=== PATIENT | male | born 1970 | race Caucasian/White ===

== ENCOUNTER 2017-04-20 13:22 | Inpatient (IN) | payer BC, OTHER ==
[~2017-04-20] VITALS: Ht 172.7 cm; Wt 67.1 kg
[2017-04-20 15:29] LABS: *AMPHETAMINE, URINE NEGATIVE (NEGATIVE); *BARBITURATE, URINE NEGATIVE (NEGATIVE); *CANNABINOID, URINE POSITIVE (NEGATIVE); *COCCAINE, URINE NEGATIVE (NEGATIVE); *OPIATE, URINE POSITIVE (NEGATIVE); *PHENCYCLIDINE SCREEN,URINE NEGATIVE (NEGATIVE)
[2017-04-20 16:30] VITALS: BP 125/80
--- NOTE | 2017-04-20 16:40 | NUR ---
PRN Toradol Administered prn Toradol 30mg for reported pain of 9/10 by pt.
--- NOTE | 2017-04-20 17:00 | NUR ---
Medication Re-assessment Pt reports pain of 4/10 at this time.. Medication was effective.
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
[2017-04-20 18:30] LABS: BASOPHILS # (AUTO) 0.1 K/uL (0.0-8.0); BASOPHILS % (AUTO) 0.8 % (0.0-2.0); EOSINOPHILS # (AUTO) 0.2 K/uL (0.0-0.7); EOSINOPHILS % (AUTO) 2.4 % (0.0-7.0); HEMATOCRIT 45.1 % (40-50); HEMOGLOBIN 15.1 G/DL (14.0-18.0); LYMPHOCYTES # (AUTO) 2.5 K/UL (0.8-4.8); LYMPHOCYTES % (AUTO) 36.9 % (20.5-51.5); MEAN CORPUSCULAR HEMOGLOBIN 30.5 UUG (27.0-31.0); MEAN CORPUSCULAR HGB CONC 33 g/dL (32.0-37.0); MEAN CORPUSCULAR VOLUME 91.2 FL (82.0-92.0); MONOCYTES # (AUTO) 0.7 K/UL (0.1-1.30); MONOCYTES % (AUTO) 11.1 % (0.0-11.0); NEUTROPHILS # (AUTO) 3.2 K/UL (1.8-8.9); NEUTROPHILS % (AUTO) 48.8 % (38.5-71.5); PLATELET COUNT (AUTO) 236 K/UL (150-450); RED BLOOD CELL COUNT(AUTO) 4.95 MIL/UL (4.7-6.1); WHITE BLOOD COUNT (AUTO) 6.7 K/UL (4.0-11.2)
[2017-04-20 18:40] LABS: ALANINE AMINOTRANSFERASE 100 U/L (16-63); ALKALINE PHOSPHATASE 69 U/L (50-136); AMYLASE 34 U/L (25-115); ASPARTATE AMINOTRANSFERASE 61 U/L (15-37); BILIRUBIN,TOTAL 0.5 mg/dL (0.2-1.0); CARBON DIOXIDE 31 mmol/L (21-32); CHLORIDE 104 mmol/L (98-107); GLUCOSE 83 mg/dL (74-106); MAGNESIUM 1.9 mg/dL (1.8-2.4); POTASSIUM 4.4 mmol/L (3.5-5.1); TOTAL PROTEIN, SERUM 8.2 g/dL (6.4-8.2); UREA NITROGEN, BLOOD 16 mg/dL (7-18)
[2017-04-20 18:47] LABS: ETHANOL < 3 MG/DL (0-0)
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
--- NOTE | 2017-04-20 19:28 | NUR ---
Start of shift note Received report from day shift nurse. Pt is a 47 yo male, A+Ox4, presenting to [facility] for Opiate/Benzo/ETOH/Methamphetamine dependence. Pt has Allergies to bees, si on full code status, and on Regular diet. Pt is on Fall precautions. Pt has HX of Anxiety, depression, and Bilateral leg SX's. Pt is on 5 day Ativan and 5 day Subutex tapers, tolerated well. No s/s of distress noted at this time. Respirations even and unlabored. Will continue to monitor.
[2017-04-20 20:08] VITALS: BP 124/82
--- NOTE | 2017-04-20 21:57 | NUR ---
PRN Robaxin Pt c/o Bilateral leg pain 02/14 and requested for PRN Robaxin. Medication given and tolerated well. Will reassess within 1 HR. Will continue to monitor.
--- NOTE | 2017-04-20 22:50 | NUR ---
PRN Robaxin Reassessment Medication effective. Pain= 4/10. No s/s of ASE/distress noted at this time. Respirations even and unlabored. Will continue to monitor.
[2017-04-21 00:15] VITALS: BP 111/73
[2017-04-21 04:19] VITALS: BP 114/75
--- NOTE | 2017-04-21 07:00 | NUR ---
End of shift note Pt is a 47 yo male, A+Ox4, presenting to [facility] for Opiate/Benzo/ETOH/Methamphetamine dependence. Pt has Allergies to bees, si on full code status, and on Regular diet. Pt is on Fall precautions. Pt has HX of Anxiety, depression, and Bilateral leg SX's. Pt is on 5 day Ativan and 5 day Subutex tapers, tolerated well. Pt was given PRN Robaxin @2157. Pt slept for a total of 7 HRS. Last COWS: 4 and Last CIWA: 3 @0400. No s/s of distress noted at this time. Respirations even and unlabored. Will endorse to day shift nurse.
[2017-04-21 08:00] VITALS: BP 109/68
--- NOTE | 2017-04-21 08:42 | NUR ---
PRN TORADOL IM INJECTION Patient complains of pain 10/10 on bilateral knees and legs. PRN toradol injection given. Will continue to monitor patient.
--- NOTE | 2017-04-21 09:42 | NUR ---
REASSESSMENT PRN TORADOL IM INJECTION Patient reports pain decreased to 8/10, mildly effective at this time.
--- NOTE | 2017-04-21 09:44 | NUR ---
START OF SHIFT Received report from carpenter streetcar nurse. Patient is 47 year old male admitted for medically supervised withdrawal from heroin and alcohol. Patient is full code with NKA. On assessment this AM: CIWA: 5 and COWS: 4. Denies SOB, chest pain. Patients vitals signs: 109/68, HR 83, R 16, Temp 98.5, pain 10/10. Reports mild anxiety, body aches (back and bilateral knees and legs), headache and stuffy nose . Med compliant with AM meds. PRN toradol IM given. PPD skin test performed on LFA to be read on 04/23/17. Instructed patient to drink po fluids. Patient was encouraged to attend group meetings today. Will continue to monitor patient. Addendum: 04/21/17 at 1024 by DORETHA VASQUEZ RN Patient has allergy to bee venom proteins (honey bee) Addendum: 04/21/17 at 1028 by DORETHA VASQUEZ RN Patient is on 5-day ativan and 5-day subutex taper.
--- NOTE | 2017-04-21 11:50 | NUR ---
PRN TYLENOL Patient complains of pain 10/10 on bilateral knees and legs. PRN tylenol given. Will continue to monitor patient.
[2017-04-21 12:00] VITALS: BP 123/64
--- NOTE | 2017-04-21 12:50 | NUR ---
REASSESSMENT PRN TYLENOL Patient reports pain 8/10, mildly effective.
--- NOTE | 2017-04-21 14:55 | NUR ---
PRN TORADOL IM INJECTION Patient complains of pain 10/10 on bilateral knees and legs. PRN toradol injection given. Will continue to monitor patient.
--- NOTE | 2017-04-21 15:55 | NUR ---
REASSESSMENT PRN TORADOL IM INJECTION Patient reports pain decreased to 6/10, effective
[2017-04-21 16:00] VITALS: BP 113/66
--- NOTE | 2017-04-21 18:48 | NUR ---
END OF SHIFT Patient is 47 year old male admitted for medically supervised withdrawal from heroin and alcohol. Patient is full code with allergy to bee venom. Patient on 5-day ativan and 5-day subutex taper. Most recent CIWA: 2 AND COWS: 2. Med compliant this shift. PRN toradol IM X2 and Tylenol given. PPD skin test performed on LFA to be read on 04/23/17. Patient tolerated meals without n/v. Ambulating with steady gait, no falls noted. No BM this shift. cis coordinatordirector of recruiting will continue to monitor patient.
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
[2017-04-21 20:26] VITALS: BP 122/77
[2017-04-22 00:18] VITALS: BP 104/58
[2017-04-22 04:00] VITALS: BP 112/78
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
--- NOTE | 2017-04-22 07:15 | NUR ---
Start of Shift Endorsement received from nightshift nurse. Pt is a 47 y/o male admitted for heroin and alcohol dependence. Pt has been placed on a 5 day Ativan and 5 day Subutex taper. PT is tolerating the taper AEB COWS 4, CIWA 4 at 0400. PT did not receive any PRN medications. PT reports feeling rested and being in 8/10 pain. Pt will be further assessed and pain medication will be administered. VS WNL. Full Code. PT is alert and oriented x4. Pt is in STABLE condition at this time. Remains compliant with medication and diet regimen. All needs have been met, All safety measures in place per hospital policy. Bed in lowest position, side rails up x2, call-light within reach. Will continue to monitor
[2017-04-22 08:00] VITALS: BP 134/86
[2017-04-22 08:17] LABS: HEPATITIS B SURFACE AG Negative (Negative)
[2017-04-22 12:00] VITALS: BP 117/73
[2017-04-22 16:00] VITALS: BP 104/69
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
--- NOTE | 2017-04-22 19:28 | NUR ---
End of Shift Endorsement given to nightshift nurse. Pt is a 47 y/o male admitted for heroin and alcohol dependence. Pt has been placed on a 5 day Ativan and 5 day Subutex taper. PT is tolerating the taper and moderately withdrawing AEB COWS 8, CIWA 7 at 1600. PT did received PRN Toradol for pain of 8/10, medication was effective AEB pt reporting pain of 3/10 upon re-assessment. Pt participated in groups and activities. Educated on diet regimen. Pt will be further assessed and pain medication will be administered. VS WNL. Full Code. PT is alert and oriented x4. Pt is in STABLE condition at this time. Remains compliant with medication and diet regimen. All needs have been met, All safety measures in place per hospital policy. Bed in lowest position, side rails up x2, call-light within reach. Will continue to monitor
[2017-04-22 20:30] VITALS: BP 132/72
--- NOTE | 2017-04-22 22:30 | NUR ---
PRN Medication Administration Patient verbalizing increased heart burn. PRN Maalox administered. Will continue to monitor.
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
--- NOTE | 2017-04-22 23:00 | NUR ---
PRN Medication Reassessment Patient is able to verbalize PRN medication was effective in minimizing heartburn. Will continue to monitor.
[2017-04-23 00:10] VITALS: BP 104/60
[2017-04-23 04:05] VITALS: BP 106/64
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
--- NOTE | 2017-04-23 07:27 | NUR ---
START OF SHIFT NOTE: Received report from night clerk nurse. Patient is a 47 year old male admitted for Opiate ad ETOH Dependence and continues receiving a 5 day Ativan and 5 day Subutex taper. Tolerating well. Pt is alert and oriented X4. Color good, skin warm and dry. Respirations even and unlabored. Safety precautions observed. Will continue to monitor.
[2017-04-23 08:14] VITALS: BP 106/64
--- NOTE | 2017-04-23 08:55 | NUR ---
VSS COWS 7 CIWA 7 c/o anxiety, muscle aches, fine tremors and aching teeth.
--- NOTE | 2017-04-23 12:20 | NUR ---
Extra dose of Subutex 4 mg sl given per Dr. Villegas
[2017-04-23 12:23] VITALS: BP 118/66
--- NOTE | 2017-04-23 13:20 | NUR ---
Pt states feels much improved after Subutex 4mg sl
--- NOTE | 2017-04-23 14:40 | NUR ---
Toradol 30mg IM RG prn given for bilateral leg pain.
--- NOTE | 2017-04-23 15:40 | NUR ---
Pt states pain down to 4/10 from 7/10 after Toradol prn
[2017-04-23 16:52] VITALS: BP 102/63
--- NOTE | 2017-04-23 18:36 | NUR ---
END OF SHIFT NOTE: Report given to office services representative nurse. Patient is a 47 year old male admitted for Opiate ad ETOH Dependence and continues receiving a 5 day Ativan and 5 day Subutex taper. Tolerating well. Pt is alert and oriented X4. Color good, skin warm and dry. Respirations even and unlabored. Vital signs have remained stable throughout shift. Pt received extra dose of Subutex 4 mg sl given @ 1220. Pt also received Toradol 30mg IM @ 1440. Last COWS 5 and CIWA 5 @ 1700. Safety precautions observed. Call light within reach.
[2017-04-23 20:00] VITALS: BP 136/72
--- NOTE | 2017-04-23 20:00 | NUR ---
START OF SHIFT Pt is a 47 y/o male admitted on 04/20/17 for benzos, ETOH, opiate dependence. Pt is here for heroin 3-5 g IV daily, xanax 2-4 mg 2-3 x weekly, alcohol 6-pack and a bottle of vodka daily, cocaine 1 g 2-3 x weekly, meth 1 g weekly. Pt is full code, allergic to bee venom, regular diet, and fall/seizure precautions. Pt reports PMH of anxiety, depression, Hep C, and surgery on bilateral legs. No reported seziure hx. Pt started on a 5 day Subutex and 5 day Ativan taper starting on 04/20/17. Subutex 4 mg x 1 and PRN Toradol given during day shift. Upon assessment pt is complaining of pain 6/10 in legs, mild to moderate anxiety, intermittent nausea. Pt also presents with flushing and inability to sit still. Respirations 16, even and unlabored. Denies vomiting or diarrhea. Denies chest pain or SOB. Medications due. Safety measures in place. Call light within reach. Will continue to monitor.
[2017-04-24] VITALS: BP 93/61
--- NOTE | 2017-04-24 | NUR ---
VITAL SIGNS BP 93/61, P 62, R 16, 02 95%, T 98.4, PA 0/10 COWS/CIWA deferred. Pt is laying in bed with eyes closed, to be reassessed when pt is awake per MD order. Respirations are even and unlabored. Safety measures in place. Call light within reach. Will continue to monitor.
[2017-04-24 04:00] VITALS: BP 107/49
--- NOTE | 2017-04-24 04:00 | NUR ---
VITAL SIGNS BP 107/49, P 59, R 17, 02 96%, T 98.0, PA 0/10 COWS/CIWA deferred. Pt is laying in bed with eyes closed, to be reassessed when pt is awake per MD order. Respirations are even and unlabored. Safety measures in place. Call light within reach. Will continue to monitor.
--- NOTE | 2017-04-24 07:00 | NUR ---
END OF SHIFT Pt is a 47 y/o male admitted on 04/20/17 for benzos, ETOH, opiate dependence. Pt is here for heroin 3-5 g IV daily, xanax 2-4 mg x 2-3 weekly, alcohol 6-pack and a bottle of vodka daily, cocaine 1 g x 2-3 weekly, meth 1 g weekly. Pt is full code, allergic to bee venom, regular diet, and fall/seizure precautions. Pt reports PMH of anxiety, depression, Hep C, and surgery on bilateral legs. No reported seziure hx. Pt started on a 5 day Subutex and 5 day Ativan taper starting on 04/20/17. During shift pt complained of pain 6/10 in legs, mild to moderate anxiety, intermittent nausea. Pt also presented with flushing and inability to sit still. Scheduled medications administered, last COWS 3 and CIWA 3. No PRN medications administered during shift. Pt slept 7 hours. Intake 1210 ml, void x 3, stool x 1. Safety measures in place. Call light within reach. Endorsed to day shift nurse.
--- NOTE | 2017-04-24 07:01 | NUR ---
Start of Shift Notes: Received patient in his room. Alert and oriented x 4. Able to make needs known. Respirations even and unlabored. No SOB noted. Skin warm and dry to touch. Abdomen soft and non-distended with (+) BS in all 4 quadrants. No complains of N/V/D or constipation noted. Bladder non-distended. Ambulatory ad primitivo with steady gait. Patient is a 47 year old male admitted for opiate/cocaine/BZO and ETOH dependence who was placed on a 5-day Subutex and 5-day Ativan taper as ordered. No adverse reactions noted. Prior to admission, patient was using 2-5 grams of Heroin IV, 1 gram of cocaine, 2-4 mg of Xanax, 1 gram of meth and 6 pack of beer or vodka daily. On fall and seizure precautions. Educated patient on his current plan of care for the day and his medication regimen. Encouraged oral fluid intake and encouraged group participation to learn new skills to prevent relapse. Will continue to monitor closely.
[2017-04-24 08:00] VITALS: BP 111/72
[2017-04-24 12:00] VITALS: BP 131/76
[2017-04-24 16:00] VITALS: BP 120/79
--- NOTE | 2017-04-24 16:58 | NUR ---
Toradol 30 mg IM given: Patient noted with complain of 9/10 pain to bilateral legs. Medicated patient with Toradol 30 mg IM as ordered. Will monitor for effectiveness.
--- NOTE | 2017-04-24 17:28 | NUR ---
Re-assessment: Toradol Per patient, PRN Toradol was effective in reducing patient's pain. PL 10/15.
--- NOTE | 2017-04-24 18:57 | NUR ---
End of Shift Notes: Patient continues to be on 5-day Ativan and 5-day Subutex taper as ordered. No adverse reactions noted. VS monitored closely. No significant abnormalities noted. Withdrawal symptoms are closely monitored. Initial COWS 5/CIWA 4 - patient presented with anxiety, agitaiton, chills, sweats and myalgia. Last COWS 4/CIWA 2. Per patient, Subutex and Ativan were effective in reducing his withdrawal symptoms. Compliant with care and treatment. Toradol 30 mg IM given at 1658 for 9/10 pain with help after 30 minutes. Requires encouragement to attend group and activities. On fall and seizure precautions. Call light kept in reach. All needs met and attended. Will continue to monitor closely.
--- NOTE | 2017-04-24 19:30 | NUR ---
START OF SHIFT Patient is 47 y/o male admitted for BENZO/ETOH/OPIATE dependency, continues to be on 5-day Ativan and 5-day Subutex taper as ordered. No adverse reactions noted. Withdrawal symptoms are closely monitored. Last COWS 4/CIWA 2. Compliant with care and treatment. On fall and seizure precautions. Received in room in a stable condition.no s/s of acute distress noted,all safety measures in place per hospital policy,Call light kept in reach. All needs met and attended. Will continue to monitor closely.
[2017-04-24 20:00] VITALS: BP 130/90
[2017-04-25] VITALS: BP 122/74
--- NOTE | 2017-04-25 04:00 | NUR ---
V/S REFUSED,COWS/CIWA DEFERRED Pt sleeping comfortably in bed,breathing even and non labored,no s/s of distress noted.COW/CIWA deferred due to Pt being asleep.
--- NOTE | 2017-04-25 06:16 | NUR ---
END OF SHIFT Patient is 47 y/o male admitted for BENZO/ETOH/OPIATE dependency, continues to be on 5-day Ativan and 5-day Subutex taper as ordered. No adverse reactions noted. Last COWS 2/CIWA 2.Pt is compliant with care and treatment. No PRN meds given last night,Pt slept 6 hrs,fluid intake was 855 mls,voided x 3.No c/o pain or s/s of acute distress noted,all safety measures in place per hospital policy,Call light kept in reach. All needs met and attended. Will continue to monitor closely.
--- NOTE | 2017-04-25 07:00 | NUR ---
Start Of Shift Report received from night cleaner nurse. Patient is 47 y/o male admitted for BENZO/ETOH/OPIATE dependency, Pt is full code regular diet on fall and seizure precautions allergic to bee venom. Pt continues to be on 5-day Ativan and 5-day Subutex taper as ordered tolerating well. PMH of anxiety depression and Hep C positive. Last COWS 2/CIWA 2 taken at 0000. Pt is compliant with care and treatment. encouraged fluids to facilitate with detox process. No PRN Meds given last night, Pt slept a total of 6 hrs. All safety measures in place per hospital policy,Call light kept in reach. All needs met and attended. Will continue to monitor closely.
[2017-04-25 08:00] VITALS: BP 135/67
[2017-04-25 12:00] VITALS: BP 125/79
[2017-04-25] MEDS ORDERED: GABA-536 PO (15:41)
[2017-04-25] MEDS ORDERED: BACL20TA PO (15:41)
[2017-04-25] MEDS ORDERED: CLON0.1T14 PO (15:41)
[2017-04-25] MEDS ORDERED: QUET100T PO (15:41)
[2017-04-25] MEDS ORDERED: FAMO20TA8 PO (15:41)
[2017-04-25] MEDS ORDERED: DIPH50CA37 PO (15:41)
[2017-04-25] MEDS ORDERED: NAPR500T3 PO (15:41)
[2017-04-25] MEDS ORDERED: HYDR-3895 PO (15:41)
[2017-04-25] MEDS ORDERED: ACET325T53 PO (15:41)
[2017-04-25] MEDS ORDERED: DICY20TA28 PO (15:41)
[2017-04-25 16:00] VITALS: BP 130/80
--- NOTE | 2017-04-25 19:15 | NUR ---
START OF SHIFT NOTE : Patient is 47 y/o male admitted for BENZO/ETOH/OPIATE dependency, continues to be on 5-day Ativan and 5-day Subutex taper as ordered. No adverse reactions noted. Withdrawal symptoms are closely monitored. Last COWS=3, CIWA=3 at 16:00 . Compliant with care and treatment. On fall and seizure precautions. Patient encouraged adequate PO fluid intake as tolerated. Received in room in a stable condition. no s/s of acute distress noted. Safety measures in place : bed on lowest position with side rails x2 up for safety, call light within reach. Will continue to monitor closely and offer help.
--- NOTE | 2017-04-25 19:16 | NUR ---
End Of Shift Report given to shiftman nurse. Patient is 47 y/o male admitted for BENZO/ETOH/OPIATE dependency, Pt is full code regular diet on fall and seizure precautions allergic to bee venom. Pt continues to be on 5-day Ativan and 5-day Subutex taper as ordered tolerating well. VS monitored closely q 4 hours. Withdrawal symptoms were closely monitored. Initial CIWA 5 COWS 5. Patient encouraged adequate PO fluid intake as tolerated. Patient presented with tremors and anxiety during the day. Last CIWA 3 COWS 3. Pt ate all of his meals. Pt received a onetime dose of Ativan 1mg and Subutex 2mg SQ per MD orders. Pt had 1692ml of fluids intake with 2 voids and 1 BMs. Pt also received a PRN Seroquel 25mg medications effective. Patient encouraged to attend group therapies/sessions to learn new coping skills to recent relapse, patient denies SI/HI. Participated in group and therapy sessions. All needs met and attended.
[2017-04-25 20:00] VITALS: BP 137/70
--- NOTE | 2017-04-26 06:38 | NUR ---
END OF SHIFT NOTE : Patient is 47 y/o male admitted for BENZO/ETOH/OPIATE dependency, continues to be on 5-day Ativan and 5-day Subutex taper as ordered. No adverse reactions noted. Withdrawal symptoms are closely monitored. On fall and seizure precautions. Patient encouraged adequate PO fluid intake as tolerated. Pt remains compliant with the treatment plan. No PRNs were given during my shift. V/S remain WNL. RR=16, even and unlabored, lungs clear upon auscultation, abdomen soft and non- distended. Pt denies nausea, vomiting and diarrhea. LAST CIWA=3 ,COWS= 3 at 0400 , ASXVXM=908 ml, voided x 2, slept 6 hours. Safety measures in place : bed on lowest position with side rails x2 up for safety, call light within reach. Will continue to monitor closely and offer help.
--- NOTE | 2017-04-26 07:15 | NUR ---
Start of Shift Endorsement received from nightshift nurse. Pt is a 47 y/o male admitted for heroin and alcohol dependence. Pt has been placed on a 5 day Ativan and 5 day Subutex taper. PT is tolerating the taper AEB COWS 3, CIWA 3 at 0400. PT did not receive any PRN medications. PT has been placed on room restriction due to inappropriate behavior. PT will remain 1:1 until farther evaluation. Pt reports feeling agitated and anxious at this time. . Pt will be further assessed and pain medication will be administered. VS WNL. Full Code. PT is alert and oriented x4. Pt is in STABLE condition at this time. Remains compliant with medication and diet regimen. All needs have been met, All safety measures in place per hospital policy. Bed in lowest position, side rails up x2, call-light within reach. Will continue to monitor
[2017-04-26 08:00] VITALS: BP 98/67
[2017-04-26 12:00] VITALS: BP 118/65
[2017-04-26 16:00] VITALS: BP 142/87
--- NOTE | 2017-04-26 19:16 | NUR ---
End of Shift Endorsement given to nightshift nurse. Pt is a 47 y/o male admitted for heroin and alcohol dependence. Pt has been placed on a 5 day Ativan and 5 day Subutex taper. PT is tolerating the taper and moderately withdrawing AEB COWS 6, CIWA 5 at 1600. PT did not receive any PRN medications. Intake: 2560ml, Void x4, BM x1. Pt participated in groups and activities. Pt reports feeling agitated and anxious at this time. . VS WNL. Full Code. PT is alert and oriented x4. Pt is in STABLE condition at this time. Remains compliant with medication and diet regimen. All needs have been met, All safety measures in place per hospital policy. Bed in lowest position, side rails up x2, call-light within reach. Will continue to monitor
[2017-04-26 20:00] VITALS: BP 137/84
--- NOTE | 2017-04-26 20:00 | NUR ---
Start of Shift Pt is a 47 year old male admitted for Opiate/Benzo/ETOH dependence, placed on 5 day Ativan and 5 day Subutex taper, completed. Pt reported using Heroin IV 3-5g/daily, Xanax 2-4mg 2-3x/weekly, 6 pack and a bottle of Vodka daily, Cocaine 1g 2-3x weekly and Meth 1g/weekly. Pt reports allergies to bee venom (honey bee), regular diet, fall/seizure precautions and full code. Upon assessment, pt presents with anxiety/irritation, reports aches in both lower extremities, respirations even/unlabored, denies SOB/chest pain, denies n/v/d, medications due, Safety measures in place, call light within reach, side rails up x2, bed locked and in low position. Will continue to monitor
[2017-04-27] VITALS: BP 125/75
--- NOTE | 2017-04-27 | NUR ---
PRN Administration Pt reports 9/10 pain in bilateral lower extremities. Toradol inj 30mg/1ml PRN administered along with Vistaril 25mg PRN administered. Safety measures in place, will continue to monitor
--- NOTE | 2017-04-27 01:00 | NUR ---
PRN Reassessment Upon reassessment, pt is in bed, watching television. Pt reports decreased pain 2-3/10. Needs met, safety measures in place, will continue to monitor
[2017-04-27 04:00] VITALS: BP 98/53
--- NOTE | 2017-04-27 04:00 | NUR ---
Vital Signs BP 98/53, pulse 78, resp 16, SpO2 99% room air, temp 97.9 COWS/CIWA deferred d/t pt sleeping, to assess while pt is awake as ordered. Safety measures in place, Will continue to monitor
--- NOTE | 2017-04-27 07:00 | NUR ---
End of Shift Pt is a 47 year old male admitted for Opiate/Benzo/ETOH dependence, placed on 5 day Ativan and 5 day Subutex taper, completed. Pt reported using Heroin IV 3-5g/daily, Xanax 2-4mg 2-3x/weekly, 6 pack and a bottle of Vodka daily, Cocaine 1g 2-3x weekly and Meth 1g/weekly. Pt reports allergies to bee venom (honey bee), regular diet, fall/seizure precautions and full code. During shift, pt presented with anxiety/irritation, reports aches in both lower extremities scheduled medications administered, along with Vistaril 25mg for anxiety and Toradol 30mg/1ml for pain in both lower bilateral extremities. COWS 4 and CIWA 3. Pt is scheduled for discharge today. Pt slept for 4 hours, intake of 1142 ml PO, voids x3 and stool x1. Safety measures in place, call light within reach, side rails up x2, bed locked and in low position. Endorsed to day shift nurse.
--- NOTE | 2017-04-27 07:39 | NUR ---
START OF SHIFT NOTE: Received report from shift production supervisor nurse. Patient is a 47 year old male admitted for Opiate ad ETOH Dependence. To be dicharged this AM. Pt is alert and oriented X4. Color good, skin warm and dry. Respirations even and unlabored. Safety precautions observed. Call light within reach.
[2017-04-27 08:02] VITALS: BP 117/76
--- NOTE | 2017-04-27 08:15 | NUR ---
VSS Pt signed discharge papers. No home meds. Toradol 30 mg IM prn and Seroquel 25mg po prn given
[2017-04-27 08:30] VITALS: BP 117/76
--- NOTE | 2017-04-27 09:15 | NUR ---
Pt states leg pain 4/10 after Toradol prn. Pain was 7/10 States Seroquel helped with his anxiety.
--- NOTE | 2017-04-27 09:50 | NUR ---
Pt discharged in stable condition with all valuables and belongings. No home meds. To [place] via [facility] private car.
== END 2017-04-27 09:50 | disposition other institution (70) | DRG 895 ==
LOC: SRC 14:32
PROVIDERS: ADMIT Internal Medicine; ATTEND Internal Medicine
PROC: HZ2ZZZZ Detoxification Services for Substance Abuse Treatment (ICD-10-PCS; principal; 2017-04-20)
PROC: HZ31ZZZ Individual Counseling for Substance Abuse Treatment, Behavioral (ICD-10-PCS; 2017-04-22)
PROC: HZ41ZZZ Group Counseling for Substance Abuse Treatment, Behavioral (ICD-10-PCS; 2017-04-23)
DX: F10.232 Alcohol dependence with withdrawal with perceptual disturbance (principal); F32.3 Major depressive disorder, single episode, severe with psychotic features; F11.23 Opioid dependence with withdrawal; F13.231 Sedative, hypnotic or anxiolytic dependence with withdrawal delirium; Y90.9 Presence of alcohol in blood, level not specified; F41.9 Anxiety disorder, unspecified; G47.50 Parasomnia, unspecified; G89.29 Other chronic pain; F16.10 Hallucinogen abuse, uncomplicated; Z91.89 Other specified personal risk factors, not elsewhere classified; F17.210 Nicotine dependence, cigarettes, uncomplicated; B19.20 Unspecified viral hepatitis C without hepatic coma; F14.90 Cocaine use, unspecified, uncomplicated; R74.0 Nonspecific elevation of levels of transaminase and lactic acid dehydrogenase [LDH]
CPT/HCPCS: 36415; 70030-TC; 80307; 80349; 80361; 83735; 85025; 86592; 86705; 86803; 87340; 87806; A4663; G0480; J1885